=== PATIENT | female | born 1945 | race Caucasian/White ===

== ENCOUNTER → 2017-01-22 | Outpatient (CLI) | payer OTHER | END | disposition home or self-care (01) | LOC: C.CPL 10:10 | PROVIDERS: ATTEND Orthopaedic Surgery Sports Medicine | DX: M75.41 Impingement syndrome of right shoulder (principal) ==

== ENCOUNTER 2017-12-13 07:37 | Inpatient (IN) | payer OTHER ==
[2017-11-09 14:26] VITALS: Ht 176.5 cm; Wt 120.1 kg
--- NOTE | 2017-11-09 15:07 | PAT Medication Instructions ---
Service Date Nov 09, 2017. Current Home Medication List Acetaminophen (Tylenol), 1,000 MG PO PRN Acetaminophen/Diphenhydramine (Tylenol Pm), 2 TAB PO HS PRN for PRN Ascorbic Acid (Vitamin C), 500 MG PO QAM Carvedilol (Coreg), 3.125 MG PO QAM Citalopram Hydrobromide (Celexa), 10 MG PO QAM Fish Oil (Orient-3), 1 CAP PO QAM Multivitamin (Multivitamin), 1 TAB PO QAM Pitavastatin Calcium (Livalo), 4 MG PO HS Medication Instructions For Your Scheduled Surgery - Hold the following medications 2 weeks prior to surgery: Fish Oil (Orient-3), 1 CAP PO QAM - Hold the following medications the morning of surgery: Multivitamin (Multivitamin), 1 TAB PO QAM Ascorbic Acid (Vitamin C), 500 MG PO QAM - Take the following medications the morning of surgery with a sip of water: Carvedilol (Coreg), 3.125 MG PO QAM Citalopram Hydrobromide (Celexa), 10 MG PO QAM Acetaminophen (Tylenol), 1,000 MG PO PRN (if needed, can be taken up to four hours before surgery) - Take the following medications as scheduled the night before surgery: Pitavastatin Calcium (Livalo), 4 MG PO HS Acetaminophen (Tylenol), 1,000 MG PO PRN (if needed) Acetaminophen/Diphenhydramine (Tylenol Pm), 2 TAB PO HS PRN for PRN (if needed) If you have any questions please call us at [phone] or [phone] or [phone]
--- NOTE | 2017-11-09 16:03 | DIAGNOSTIC IMAGING REPORT ---
CHEST 2 VIEWS ROUTINE HISTORY: Preop. COMPARISON: None. FINDINGS: The heart is normal in size. No pleural effusions. No pneumothorax. Small left upper lobe calcified granuloma. The lungs are otherwise clear. Prior cholecystectomy. IMPRESSION: No acute process. Electronically signed by: Hai Bacon M.D. 11/09/2017 4:01 PM Dictated Date/Time: 11/09/2017 4:00 PM
[2017-11-09 16:05] LABS: BASO % 0.1 %; BASO ABS # 0.01 K/uL (0-0.2); EOS % 1.9 %; EOS ABS # 0.14 K/uL (0-0.5); HEMOGLOBIN 13.5 g/dL (12.0-16.0); LYMPH % 32.1 %; LYMPH ABS # 2.33 K/uL (1.2-3.4); MEAN CELL VOLUME 94.1 fL (80-100); MEAN CORPUSCULAR HEMOGLOBIN 31.8 pg (25-34); MEAN CORPUSCULAR HGB CONC 33.8 g/dl (32-36); MEAN PLATELET VOLUME 10.7 fL (7.4-10.4); MONO % 10.2 %; MONO ABS # 0.74 K/uL (0.11-0.59); NEUT % 55.7 %; NEUT ABS # 4.03 K/uL (1.4-6.5); PLATELET COUNT 246 K/uL (130-400); RED CELL DISTRIBUTION WIDTH CV 13.3 % (11.5-14.5); RED CELL DISTRIBUTION WIDTH SD 45.9 fL (36.4-46.3); WHITE BLOOD COUNT 7.25 K/uL (4.8-10.8)
[2017-11-09 16:14] LABS: PTT PATIENT 24.5 SECONDS (21.0-31.0)
[2017-11-09 16:35] LABS: ALBUMIN 3.3 gm/dl (3.4-5.0); CALCIUM 8.9 mg/dl (8.5-10.1); CREATININE 0.67 mg/dl (0.60-1.20); POTASSIUM 3.8 mmol/L (3.5-5.1)
[2017-11-10 07:29] LABS: HEMOGLOBIN A1C 5.2 % (4.5-5.6)
--- NOTE | 2017-12-12 18:12 | HISTORY & PHYSICAL EXAMINATION ---
DATE OF ADMISSION: 12/13/2017 CHIEF COMPLAINT: Chronic right knee pain. HISTORY OF PRESENT ILLNESS: This is a 72-year-old female patient of Dr. Biggs'skyler complaining of chronic right knee pain, longstanding, now progressively getting worse. The patient has been diagnosed with end-stage osteoarthritis per clinical and radiographic exams. The patient has failed conservative treatment including physical therapy, Tylenol, anti-inflammatories and intra-articular injections. She has also tried the use of a brace and a sleeve. She continues to have pain with weightbearing activities and her pain does interfere with her activities of daily living. PAST MEDICAL HISTORY: Hypertension, hypercholesterolemia, osteoarthritis, spine problems, neck problems, sciatica, obesity. SOCIAL HISTORY: Nonsmoker, nondrinker. PAST SURGICAL HISTORY: Right shoulder, hysterectomy, cholecystectomy, tonsillectomy. FAMILY HISTORY: Noncontributory. REVIEW OF SYSTEMS: The patient complains of chronic right knee pain, otherwise denies any shortness of breath, chest pain, nausea, vomiting or visual complaints. MEDICATIONS: Tylenol PM as needed, fish oil daily, vitamin C daily, Coreg 3.125 mg daily, Livalo 4 mg daily, Celexa 10 mg daily. ALLERGIES: INCLUDES PENICILLIN, CELEBREX AND KEFLEX. PHYSICAL EXAMINATION: GENERAL: Well-developed, well-nourished 72-year-old female in no acute distress. She is alert and oriented x3 and pleasant. HEENT: Normocephalic, atraumatic. Extraocular muscles are intact. Pupils are equal, reactive to light. HEART: Regular rate and rhythm, no murmurs appreciated. LUNGS: Clear. ABDOMEN: Soft and nontender. Bowel sounds are present. EXTREMITIES: Right knee limited range of motion of 0-85. She has a valgus deformity. She has lateral joint line tenderness. She has 4/5 strength. NEUROLOGIC: Neurovascularly, she is intact in her right lower extremity. DIAGNOSES: Right knee end-stage osteoarthritis, hypertension, hypercholesterolemia, osteoarthritis, spine problems, neck problems, sciatica, obesity. PLAN: The patient was advised of her diagnosis. Indications, risks, benefits, postop course have all been reviewed. The patient wished to proceed with a right total knee arthroplasty. Necessary consent forms, preoperative testing clearances will be obtained.
[~2017-12-13] VITALS: Ht 176.5 cm; Wt 120.1 kg
[~2017-12-13 07:37] MED LIST: ACET-1256 PO; ACETAMINOPHEN 500 MG TAB PO SCH; ASCO1CAP3 PO; BUPIVACAINE 0.25% 30 ML VIAL ONE; BUPIVACAINE 0.5 % 5 MG/1 ML PF 10ML VIAL ONE; CARV3.122 PO; CITA10TA8 PO; CeleBREX 200 MG CAP PO SCH; DEXAMETHASONE 4 MG TAB PO SCH; DIPH-437 PO; FAMOTIDINE 20 MG TAB PO SCH; GABAPENTIN 300 MG CAP PO SCH; LACTATED RINGER'S 1000ML 1,000 ML IV SCH; LACTATED RINGER'S 1000ML 500 ML IV SCH; METOCLOPRAMIDE HCL 10 MG TAB PO SCH; MULT-506 PO; OMEG10007 PO; PITA1TAB19 PO; ROPIVACAINE 5MG/ML 30 ML 150 MG, BUPIVACAINE 0.5% MPF INJ 30 ML, EpINEphrine HCL INJ 0.... INFIL SCH; VANCOMYCIN INJ 1,750 MG in SODIUM CHLORIDE 0.9% 500ML 500 ML IV SCH
[2017-12-13] MEDS ORDERED: FENTANYL CITRATE INJ 50 MCG/1 ML 2 ML VIAL ONE (08:00)
[2017-12-13] MEDS ORDERED: MIDAZOLAM HCL 1 MG/ML 2ML VIAL ONE ×2 (08:00→10:58)
[2017-12-13 08:38] VITALS: BP 160/73; PULSE 66; TEMP 36.8; O2SAT 95
[2017-12-13] MEDS ORDERED: ATROPINE SULFATE 0.1 MG/ML 5ML SYR IV PRN (08:45)
[2017-12-13] MEDS ORDERED: ONDANSETRON INJ 2 MG/ML 2 ML VIAL IV PRN ×2 (08:45→13:00)
[2017-12-13] MEDS ORDERED: EpHEDrine SULFATE INJ 50 MG/ML AMP IV PRN (08:45)
[2017-12-13] MEDS ORDERED: FENTANYL CITRATE INJ 50 MCG/1 ML 2 ML VIAL IV PRN (08:45)
--- NOTE | 2017-12-13 09:33 | History & Physical Bridge Note ---
H&P Re-Evaluation Bridge Note: I have examined the patient, reviewed the History & Physical and in the interval since the performance of the History & Physical I have noted the following changes of clinical significance: No changes noted
[2017-12-13] MEDS ORDERED: ORTHO JOINT ANESTHETIC ONE (09:59)
[2017-12-13] MEDS ORDERED: POVIDONE-IODINE OP SOLN 30 ML BTL ONE (09:59)
[2017-12-13] MEDS ORDERED: BACITRACIN 50000 UNIT VIAL ONE (09:59)
[2017-12-13] MEDS: TRANEXAMIC ACID INJ 1,000 MG x 2 Bags IV SCH ×4 (10:36→13:55)
[2017-12-13] MEDS ORDERED: PROPOFOL IV EMULSION 10 MG/ML 20 ML VIAL IV ONE ×2 (12:05→12:12)
--- NOTE | 2017-12-13 12:28 | [facility] Post Operative Brief Note ---
Immediate Operative Summary Operative Date Dec 13, 2017. Pre-Operative Diagnosis Right knee end-stage osteoarthritis Post-Operative Diagnosis Same as preop Procedure(s) Performed Right Knee Total Arthroplasty,superficial wound vac Surgeon Dr. Biggs Casting Associate Surgeon(s) Andre ORTIZ Estimated Blood Loss 5ml Findings Consistent with Post-Op Diagnosis Specimens Right knee bone and tissue Drains 2 hemovac Anesthesia Type MAC Spinal Regional Complication(s) none Disposition Disposition: Recovery Room / PACU
[2017-12-13] MEDS ORDERED: MoRPHine SULFATE 2 MG/ML CARP IV PRN (13:00)
[2017-12-13] MEDS ORDERED: MAGNESIUM HYDROXIDE SUSP 30 ML UDC PO PRN (13:00)
[2017-12-13] MEDS ORDERED: METOCLOPRAMIDE HCL INJ 5 MG/ML 2 ML VIAL IV PRN (13:00)
[2017-12-13] MEDS ORDERED: ZOLPIDEM TARTRATE 5 MG TAB PO PRN (13:00)
[2017-12-13] MEDS ORDERED: BISACODYL 10 MG SUPP PR PRN (13:00)
[2017-12-13] MEDS ORDERED: SOD PHOSPHATE/SOD BIPHOSPHATE ENEMA 132 ML BTL PR PRN (13:00)
--- NOTE | 2017-12-13 13:29 | DIAGNOSTIC IMAGING REPORT ---
R KNEE 1 OR 2 VIEWS ROUTINE CLINICAL HISTORY: AP/LATERAL IN PACU RIGHT KNEE pain COMPARISON: None. DISCUSSION: Anatomic alignment posttotal right knee arthroplasty. Expected soft tissue postoperative change. IMPRESSION: Anatomic alignment posttotal right knee arthroplasty. The above report was generated using voice recognition software. It may contain grammatical, syntax or spelling errors. Electronically signed by: Andre Pollack M.D. 12/13/2017 1:27 PM Dictated Date/Time: 12/13/2017 1:26 PM
[2017-12-13 14:05] VITALS: BP 112/63; PULSE 56; TEMP 36.2; O2SAT 99
[2017-12-13 14:35] VITALS: BP 142/70; PULSE 60; O2SAT 97
--- NOTE | 2017-12-13 15:06 | Anesthesiology Progress Note ---
Anesthesia Post Op Note Date & Time Dec 13, 2017 at 15:06 Vital Signs Pain Intensity: 0.0 Vital Signs Past 12 Hours Date Time Temp Pulse Resp B/P (MAP) Pulse Ox O2 Delivery O2 Flow Rate FiO2 12/13/17 14:35 60 16 142/70 (94) 97 2.0 12/13/17 14:05 36.2 56 16 112/63 (79) 99 Nasal Cannula 2.0 12/13/17 14:05 Nasal Cannula 2.0 12/13/17 14:05 Nasal Cannula 2.0 12/13/17 13:40 37.1 53 18 124/57 97 Nasal Cannula 2 12/13/17 13:30 37.1 54 16 122/58 98 Nasal Cannula 2 12/13/17 13:20 53 16 121/55 96 Nasal Cannula 2 12/13/17 13:10 57 16 105/57 96 Nasal Cannula 2 12/13/17 13:00 55 16 106/55 98 Nasal Cannula 2 12/13/17 12:51 36.7 59 16 114/52 95 Nasal Cannula 2 12/13/17 08:38 36.8 66 20 160/73 95 Room Air Notes Mental Status: alert / awake / arousable, participated in evaluation Pt Amnestic to Procedure: Yes Nausea / Vomiting: adequately controlled Pain: adequately controlled Airway Patency, RR, SpO2: stable & adequate BP & HR: stable & adequate Hydration State: stable & adequate Neuraxial Anesthesia: was administered, sensory block is resolving Anesthetic Complications: no major complications apparent
--- NOTE | 2017-12-13 15:10 | [facility] Operative Report ---
Operative Report Operative Date Dec 13, 2017. Pre-Operative Diagnosis Right knee end-stage osteoarthritis Post-Operative Diagnosis Same Procedure(s) Performed Right total knee arthroplasty, superficial wound VAC application Surgeon Dr. Biggs Hazardous Material Specialist Surgeon(s) Andre ORTIZ Estimated Blood Loss 5ml Findings Severe DJD lateral compartment grade 4 [id number] grade 3-4 patellofemoral DJD chronic lateral meniscus tear with subluxation. Specimens Right knee bone and tissue Drains 2 hemovac Anesthesia Spinal sedation regional block and orthomix Complication(s) None Disposition Recovery Room / PACU Indications 72-year-old female with severe bilateral knee DJD valgus knees [id number] lateral compartment bilateral knees. Right knee more painful than left. Obesity BMI 38.6 Description of Procedure The patient was taken to the operating room and anesthetized under spinal anesthetic sedation regional block to right knee. Patient was placed supine on the the operating table. A pneumatic tourniquet was placed about the right upper thigh. The knee exam demonstrated valgus knee slight flexion contracture flexion of 125. Right lower extremity was prepped and draped with ChloraPrep U sterile fashion. An anterior longitudinal incision was made across the knee. Skin flaps were elevated. An incision was made into the medial retinaculum and extended up into the mid third of the quadriceps tendon and extended down to the tibial tubercle. Intra-articular findings demonstrated valgus knee grade 4 lateral compartment osteoarthritis grade 3-4 patellofemoral osteoarthritis chronic lateral meniscus tear with subluxation.. The knee was exposed by excising cruciate ligaments and menisci. The infrapatellar fat pad was resected. The fat pad over the anterior femur at the upper aspect of the articular surface was resected for placement of the component in that area. A subperiosteal peel lateral release was performed around the patella The Stevens [employer] Nephew Xyoney 2.0 total knee arthroplasty system was utilized for the procedure. Visionary MRI templating was used sizing fever for 6 tibia for a 4. The custom femoral cutting guide was pinned in position. The distal femoral cut was made. The size 6, 5 in 1 cutting block was placed. The anterior posterior and chamfer cuts were made. The knee was extended and a free hand cut technique was performed to the patella. The patella with was measured and the width was reproduced using a 35 mm patella component. 3 drill holes are made for the patella component pegs. The tibia was then subluxed. The custom tibial cutting block was pinned in position and the proximal tibial cut was made with the oscillating saw. The size 4 tibial trial was externally rotated in line with the tibial tubercle and pinned in position. The punch for the stem was used and the collet was placed. Tibial trials were used for the insert. The size 12 trial gave balanced ligaments through full range of motion. Lateral capsule and a portion of the IT band of the tibia was released to achieve ligamentous balance. Patella tracking was assessed with range of motion. The patella tracked centrally. The trials were removed. The Orthomix anesthetic cocktail was injected per protocol. The cut bone surfaces and soft tissue were copiously irrigated with antibiotic solution with bacitracin. The final components were cemented with Simplex cement. The final components were Stevens [employer] Nephew journey 2.0 size 6 posterior stabilized Oxinium femoral component for primary tibial baseplate 12 mm high flex posterior stabilized polyethylene insert and a 35 mm dome patella. While the cement cured the Betadine soak was used per protocol. When the cement cured the knee was copiously irrigated with pulsatile lavage antibiotic solution with bacitracin. 2 drains were brought out laterally connected to Hemovac. The quadriceps tendon and medial retinaculum were closed with interrupted [id number] #1 Vicryl sutures. The knee was taken through full range of motion and repair was secure. The subcutaneous tissues were closed with 2-0 Vicryl sutures. The skin was closed with elysia. A superficial wound VAC was applied. The tourniquet was let down and the patient had good capillary refill to the extremity. The patient tolerated the procedure well. My physician railways assistant Andre ORTIZ assisted in the procedure including leg positioning soft tissue retraction instrument management and assisted in the closure ,dressings application and will participate in postoperative care the patient. I attest to the content of the Intraoperative Record and any orders documented therein. Any exceptions are noted below.
[2017-12-13 15:27] VITALS: BP 135/83; PULSE 57; TEMP 36.3; O2SAT 96
[2017-12-13 16:15] VITALS: BP 139/81; TEMP 36.6; O2SAT 96
[2017-12-13] MEDS: CLINDAMYCIN IV 600 MG in DEXTROSE 5% 50ML 50 ML IV SCH (17:59)
[2017-12-13] MEDS: OXYCODONE HCL IR 5 MG TAB (IMMEDIATE RELEASE) PO PRN (20:23)
[2017-12-13] MEDS: DOCUSATE SODIUM 100 MG CAP PO SCH (20:39)
[2017-12-13] MEDS: ASPIRIN 81 MG ECTAB PO SCH (20:39)
[2017-12-13] MEDS ORDERED: ASPEC81 PO (20:42)
--- NOTE | 2017-12-13 21:04 | Medical Consult ---
Consultation Date of Consultation: Dec 13, 2017. Attending Physician: Darrick Biggs M.D. Reason for Consultation: perioperative medication management History of Present Illness This is a 72-year-old female patient of Dr. Biggs'skyler who underwent a right total knee replacement today for long-standing progressively worse osteoarthritis. She is doing well postoperatively denying pain, tolerating p.o. and plans to go home tomorrow. Full history and physical performed and medications were reviewed with patient. Review of systems is negative at this time. The patient is tolerating p.o. and reports that she is passing gas. Past Medical/Surgical History Medical Problems: (1) HTN (hypertension) Status: Chronic (2) Hyperlipidemia Status: Chronic (3) Obesity (BMI 30-39.9) Status: Chronic (4) Osteoarthritis Status: Chronic (5) Sciatica Status: Chronic Surgical Problems: (1) S/P rhonda Status: Chronic (2) S/P T&A (status post tonsillectomy and adenoidectomy) Status: Chronic (3) S/P TIP (total abdominal hysterectomy) Status: Chronic Family History Patient reports no known family medical history. Social History Smoking Status: Never Smoker Smokeless Tobacco Use: No Alcohol Use: none Drug Use: none Marital Status: Housing Status: lives with significant other Occupation Status: retired Allergies Coded Allergies: Penicillins (Verified Allergy, Unknown, HIVES, 12/13/17) Celecoxib (Verified Adverse Reaction, Unknown, ELEVATED BP, 12/13/17) Cephalexin (Verified Adverse Reaction, Unknown, GETS YEAST INFECTION, ) Home Medications Reported Home Medications Medications Dose Route/Sig Max Daily Dose Days Date Category Aspirin EC Low Dose (Aspirin) 81 Mg Ectab 81 Mg PO DAILY 12/13/17 Reported Tylenol (Acetaminophen) 500 Mg Tab 1,000 Mg PO PRN 11/09/17 Reported Multivitamin (Multivitamins) Tab 1 Tab PO QAM 11/09/17 Reported Livalo (Pitavastatin) 4 Mg Tab 4 Mg PO HS 11/09/17 Reported Celexa (Citalopram Hydrobromide) 10 Mg Tab 10 Mg PO QAM 11/09/17 Reported Vitamin C (Ascorbic Acid) 500 Mg Cap 500 Mg PO QAM 11/09/17 Reported Sobieski-3 (Fish Oil) 1 Ea Cap 1 Cap PO QAM 11/09/17 Reported Coreg (Carvedilol) 3.125 Mg Tab 3.125 Mg PO QAM 11/09/17 Reported Current Inpatient Medications Current Inpatient Medications Medications (Trade) Dose Ordered Sig/Kiki Route Start Time Stop Time Status Last Admin Dose Admin Vancomycin HCl 1750 mg/Sodium Chloride 535 ml @ 200 mls/hr PREOP IV 12/13/17 06:00 12/14/17 05:59 12/13/17 08:28 200 MLS/HR Carvedilol (Coreg Tab) 3.125 mg QAM PO 12/14/17 09:00 01/13/18 08:59 Citalopram Hydrobromide (celeXA TAB) 10 mg QAM PO 12/14/17 09:00 01/13/18 08:59 Ascorbic Acid (Vitamin C Tab) 500 mg QAM PO 12/14/17 09:00 01/13/18 08:59 Miscellaneous Information (Order Awaiting Action) 1 ea QS N/A 12/13/17 16:00 01/12/18 15:59 Potassium Chloride/Dextrose/ Sod Cl 1,000 ml @ 100 mls/hr Q10H IV 12/13/17 15:00 12/14/17 14:59 Clindamycin Phosphate 600 mg/ Dextrose 54 ml @ 100 mls/hr Q8H IV 12/13/17 16:00 12/14/17 00:33 12/13/17 17:59 100 MLS/HR Oxycodone HCl (Roxicodone Immediate Rel Tab) 1 TABLET FOR PAIN RATING... Q4H PRN PO 12/13/17 13:00 12/27/17 12:59 12/13/17 20:23 5 MG Morphine Sulfate (MoRPHine SULFATE INJ) FOR PAIN, 2-4MG 2MG FOR P... Q2H PRN IV 12/13/17 13:00 12/27/17 12:59 Acetaminophen (Tylenol Tab) 1,000 mg Q8H PO 12/13/17 22:00 01/12/18 21:59 Magnesium Hydroxide (Milk Of Magnesia Susp) 30 ml Q6H PRN PO 12/13/17 13:00 01/12/18 12:59 Bisacodyl (Dulcolax Supp) 10 mg DAILY PRN NE 12/13/17 13:00 01/12/18 12:59 Sodium Biphosphate/ Sodium Phosphate (Fleet Enema) 132 ml DAILY PRN NE 12/13/17 13:00 01/12/18 12:59 Docusate Sodium (coLACE CAP) 100 mg BID PO 12/13/17 21:00 01/12/18 20:59 12/13/17 20:39 100 MG Diphenhydramine HCl (Benadryl Cap) 25 mg Q8H PRN PO 12/13/17 13:00 01/12/18 12:59 Zolpidem Tartrate (Ambien Tab) 5 mg HSZ PRN PO 12/13/17 13:00 01/12/18 12:59 Multivitamins (Multivitamin Tab) 1 tab QAM PO 12/14/17 09:00 01/13/18 08:59 Ondansetron HCl (Zofran Inj) 4 mg Q6H PRN IV 12/13/17 13:00 01/12/18 12:59 Metoclopramide HCl (Reglan Inj) 10 mg Q6H PRN IV 12/13/17 13:00 01/12/18 12:59 Pantoprazole Sodium (Protonix Tab) 40 mg QAM PO 12/14/17 09:00 12/18/17 08:59 Tramadol HCl (Ultram Tab) 1 tablet for pain rating... Q4H PRN PO 12/13/17 13:00 01/12/18 12:59 Aspirin (Ecotrin Tab) 81 mg BID PO 12/13/17 21:00 01/12/18 20:59 12/13/17 20:39 81 MG Review of Systems At least 10 systems were reviewed and negative except as indicated in H PI. Physical Exam Date Time Temp Pulse Resp B/P (MAP) Pulse Ox O2 Delivery O2 Flow Rate FiO2 12/13/17 16:20 Nasal Cannula 2.0 12/13/17 16:15 36.6 15 139/81 (100) 96 Nasal Cannula 2.0 12/13/17 15:27 36.3 57 18 135/83 (100) 96 Nasal Cannula 2.0 12/13/17 14:35 60 16 142/70 (94) 97 2.0 12/13/17 14:05 36.2 56 16 112/63 (79) 99 Nasal Cannula 2.0 12/13/17 14:05 Nasal Cannula 2.0 12/13/17 14:05 Nasal Cannula 2.0 12/13/17 13:40 37.1 53 18 124/57 97 Nasal Cannula 2 12/13/17 13:30 37.1 54 16 122/58 98 Nasal Cannula 2 12/13/17 13:20 53 16 121/55 96 Nasal Cannula 2 12/13/17 13:10 57 16 105/57 96 Nasal Cannula 2 12/13/17 13:00 55 16 106/55 98 Nasal Cannula 2 12/13/17 12:51 36.7 59 16 114/52 95 Nasal Cannula 2 12/13/17 08:38 36.8 66 20 160/73 95 Room Air General Appearance: no apparent distress, + obese Head: normocephalic, atraumatic Eyes: normal inspection, sclerae normal ENT: pharynx normal Neck: trachea midline Respiratory/Chest: lungs clear, normal breath sounds, no respiratory distress, no accessory muscle use Cardiovascular: regular rate, rhythm, no edema, no gallop, no JVD, no murmur, normal peripheral pulses Abdomen/GI: non tender, soft Extremities/Musculoskelatal: + pertinent finding (NVI, right leg in the large postsurgical dressing clean dry and intact) Neurologic/Psych: lace roller operator II-XII nml as tested, alert, normal mood/affect, oriented x 3 Skin: normal color, warm/dry Laboratory Results 11/09/17 15:18 Red Blood Count 4.25, Mean Corpuscular Volume 94.1, Mean Corpuscular Hemoglobin 31.8, Mean Corpuscular Hemoglobin Concent 33.8, Mean Platelet Volume 10.7, Neutrophils (%) (Auto) 55.7, Lymphocytes (%) (Auto) 32.1, Monocytes (%) (Auto) 10.2, Eosinophils (%) (Auto) 1.9, Basophils (%) (Auto) 0.1, Neutrophils # (Auto ) 4.03, Lymphocytes # (Auto) 2.33, Monocytes # (Auto) 0.74, Eosinophils # (Auto ) 0.14, Basophils # (Auto) 0.01 11/09/17 15:18 Test 11/09/17 00:00 11/09/17 15:18 Urine Color YELLOW Urine Appearance CLEAR (CLEAR) Urine pH 5.0 (4.5-7.5) Urine Specific [employer] 1.019 (1.000-1.030) Urine Protein NEG (NEG) Urine Glucose (UA) NEG (NEG) Urine Ketones NEG (NEG) Urine Occult Blood NEG (NEG) Urine Nitrite NEG (NEG) Urine Bilirubin NEG (NEG) Urine Urobilinogen NEG (NEG) Urine Leukocyte Esterase NEG (NEG) White Blood Count 7.25 K/uL (4.8-10.8) Red Blood Count 4.25 M/uL (4.2-5.4) Hemoglobin 13.5 g/dL (12.0-16.0) Hematocrit 40.0 % (37-47) Mean Corpuscular Volume 94.1 fL (80-100) Mean Corpuscular Hemoglobin 31.8 pg (25-34) Mean Corpuscular Hemoglobin Concent 33.8 g/dl (32-36) Platelet Count 246 K/uL (130-400) Mean Platelet Volume 10.7 fL (7.4-10.4) Neutrophils (%) (Auto) 55.7 % Lymphocytes (%) (Auto) 32.1 % Monocytes (%) (Auto) 10.2 % Eosinophils (%) (Auto) 1.9 % Basophils (%) (Auto) 0.1 % Neutrophils # (Auto) 4.03 K/uL (1.4-6.5) Lymphocytes # (Auto) 2.33 K/uL (1.2-3.4) Monocytes # (Auto) 0.74 K/uL (0.11-0.59) Eosinophils # (Auto) 0.14 K/uL (0-0.5) Basophils # (Auto) 0.01 K/uL (0-0.2) RDW Standard Deviation 45.9 fL (36.4-46.3) RDW Coefficient of Variation 13.3 % (11.5-14.5) Immature Granulocyte % (Auto) 0.0 % Immature Granulocyte # (Auto) 0.00 K/uL (0.00-0.02) Prothrombin Time 10.2 SECONDS (9.0-12.0) Prothromb Time International Ratio 1.0 (0.9-1.1) Activated Partial Thromboplast Time 24.5 SECONDS (21.0-31.0) Partial Thromboplastin Ratio 0.9 Anion Gap 6.0 mmol/L (3-11) Est Creatinine Clear Calc Drug Dose 109.1 ml/min Estimated GFR () 103.2 Estimated GFR (Non- 89.1 BUN/Creatinine Ratio 19.1 (10-20) Estimated Average Glucose 103 mg/dl Hemoglobin A1c 5.2 % (4.5-5.6) Calcium Level 8.9 mg/dl (8.5-10.1) Albumin 3.3 gm/dl (3.4-5.0) Assessment & Plan 1. s/p right total knee replacement -POD 0; surgery performed by Dr.Edwin Biggs -post-operative pain well managed -monitor for acute blood loss with daily H&H -pt encouraged to utilize spirometry to prevent post-op infection -PT/OT -activity and wound care orders per ortho protocol -will continue to follow -Aspirin and fish oil on hold until okay with surgery 2. Hypertension-controlled continue Coreg per home regimen 3. Depression stable-continue Celexa per home regimen DVT Prophylaxis -per ortho protocol Code Status -full code Dispo -per ortho. Thank you for this consultation. We will follow the patient with you during their hospital stay. You can reach a member of the [facility] Hospitalist Team 30/04 via pager @ . Joanna Muñoz DO [facility] Hospitalist
[2017-12-13] MEDS: ACETAMINOPHEN 500 MG TAB PO SCH (21:56)
[2017-12-13] MEDS: D5W AND 1/2NSS + 20MEQ KCL 1,000 ML IV SCH (21:56)
[2017-12-13 22:53] VITALS: BP 104/63; PULSE 65; TEMP 37; O2SAT 91
[2017-12-14] VITALS (8 sets, daily range): BP systolic 112–146; BP diastolic 62–81; PULSE 60–66; TEMP 36.6–36.9; O2SAT 93–96
[2017-12-14] MEDS: CLINDAMYCIN IV 600 MG in DEXTROSE 5% 50ML 50 ML IV SCH (00:05)
[2017-12-14] MEDS: D5W AND 1/2NSS + 20MEQ KCL 1,000 ML IV SCH ×2 (00:07→08:21)
[2017-12-14] MEDS ORDERED: CHOL100041 PO (02:14)
[2017-12-14] MEDS: ACETAMINOPHEN 500 MG TAB PO SCH ×3 (05:31→22:36)
[2017-12-14] MEDS: OXYCODONE HCL IR 5 MG TAB (IMMEDIATE RELEASE) PO PRN ×4 (05:31→20:35)
[2017-12-14 07:08] LABS: HEMATOCRIT 34.5 % (37-47); HEMOGLOBIN 11.9 g/dL (12.0-16.0); MEAN CORPUSCULAR HEMOGLOBIN 31.7 pg (25-34); MEAN CORPUSCULAR HGB CONC 34.5 g/dl (32-36); MEAN PLATELET VOLUME 10.3 fL (7.4-10.4); PLATELET COUNT 219 K/uL (130-400); RED CELL DISTRIBUTION WIDTH CV 13.1 % (11.5-14.5); RED CELL DISTRIBUTION WIDTH SD 44.1 fL (36.4-46.3); WHITE BLOOD COUNT 12.15 K/uL (4.8-10.8)
[2017-12-14 07:33] LABS: CREATININE 0.7 mg/dl (0.60-1.20); POTASSIUM 4.4 mmol/L (3.5-5.1)
[2017-12-14 07:34] LABS: CALCIUM 8.4 mg/dl (8.5-10.1)
--- NOTE | 2017-12-14 08:15 | Orthopedic Progress Note ---
Orthopedic Progress Note Date of Service Dec 14, 2017. Subjective Post OP Day: 1 Reports: feeling well, pain controlled w PO medications, Denies: complaints, chest pain, SOB, nausea / vomiting, light headedness, calf pain Objective calves soft nontender, N/V intact, capillary refill less than 2 sec., dressing C /D/I, A&O x3, toes mobile Date Time Temp Pulse Resp B/P (MAP) Pulse Ox O2 Delivery O2 Flow Rate FiO2 12/14/17 07:58 36.8 64 14 130/78 (95) 94 Room Air 12/14/17 07:15 Room Air 12/14/17 07:14 36.7 63 18 132/81 (98) 95 Room Air 12/14/17 02:54 36.6 65 16 112/62 (79) 93 Room Air 12/14/17 00:00 Room Air 12/13/17 22:53 37.0 65 16 104/63 (77) 91 Room Air 12/13/17 16:20 Nasal Cannula 2.0 12/13/17 16:15 36.6 15 139/81 (100) 96 Nasal Cannula 2.0 12/13/17 15:27 36.3 57 18 135/83 (100) 96 Nasal Cannula 2.0 12/13/17 14:35 60 16 142/70 (94) 97 2.0 12/13/17 14:05 36.2 56 16 112/63 (79) 99 Nasal Cannula 2.0 12/13/17 14:05 Nasal Cannula 2.0 12/13/17 14:05 Nasal Cannula 2.0 12/13/17 13:40 37.1 53 18 124/57 97 Nasal Cannula 2 12/13/17 13:30 37.1 54 16 122/58 98 Nasal Cannula 2 12/13/17 13:20 53 16 121/55 96 Nasal Cannula 2 12/13/17 13:10 57 16 105/57 96 Nasal Cannula 2 12/13/17 13:00 55 16 106/55 98 Nasal Cannula 2 12/13/17 12:51 36.7 59 16 114/52 95 Nasal Cannula 2 12/13/17 08:38 36.8 66 20 160/73 95 Room Air Laboratory Results 24 Hours: Test 12/14/17 06:46 Hematocrit 34.5 % Hemoglobin 11.9 g/dL Assessment & Plan Assessment: POD #1, Right TKA Plan: PT/ OT DVT proph- ASA D/C planning home w OPPT As per medicine. Inhouse Planning Pain Management: Ultram, Morphine, PO Tylenol, Oxy IR DVT Prophylaxis: TEDs, SCDs, ASA Discharge Planning Discharge Planning: home with oppt Pain Management: Ultram, PO Tylenol, Oxy IR DVT Prophylaxis: TEDs, ASA Therapy: Physical Therapy, Occupational Therapy
[2017-12-14] MEDS: DOCUSATE SODIUM 100 MG CAP PO SCH ×2 (08:21→20:31)
[2017-12-14] MEDS: PANTOprazole SOD 40 MG TAB PO SCH (08:21)
[2017-12-14] MEDS: ASPIRIN 81 MG ECTAB PO SCH ×2 (08:21→20:31)
[2017-12-14] MEDS: MULTIVITAMIN TAB PO SCH (08:21)
[2017-12-14] MEDS: ASCORBIC ACID 500 MG TAB PO SCH (08:21)
[2017-12-14] MEDS: CARVEDILOL 3.125 MG TAB PO SCH (08:22)
[2017-12-14] MEDS: CITALOPRAM 20 MG TAB PO SCH (08:22)
--- NOTE | 2017-12-14 10:09 | Anesthesiology Progress Note ---
Anesthesia Post Op Note Date & Time Dec 14, 2017 at 10:09 Vital Signs Pain Intensity: 3.0 Vital Signs Past 12 Hours Date Time Temp Pulse Resp B/P (MAP) Pulse Ox O2 Delivery O2 Flow Rate FiO2 12/14/17 08:52 94 Room Air 12/14/17 07:58 36.8 64 14 130/78 (95) 94 Room Air 12/14/17 07:15 Room Air 12/14/17 07:14 36.7 63 18 132/81 (98) 95 Room Air 12/14/17 02:54 36.6 65 16 112/62 (79) 93 Room Air 12/14/17 00:00 Room Air 12/13/17 22:53 37.0 65 16 104/63 (77) 91 Room Air Notes Mental Status: alert / awake / arousable, participated in evaluation Pt Amnestic to Procedure: Yes Nausea / Vomiting: adequately controlled Pain: adequately controlled Airway Patency, RR, SpO2: stable & adequate BP & HR: stable & adequate Hydration State: stable & adequate Neuraxial Anesthesia: was administered, sensory block resolved Anesthetic Complications: no major complications apparent
[2017-12-14] MEDS: TRAMADOL HCL 50 MG TAB PO PRN (12:30)
--- NOTE | 2017-12-14 20:41 | Progress Note ---
Medicine Progress Note Date & Time of Visit: Dec 14, 2017 at 20:41. Subjective patient seen resting in bed, comfortable states she feels fine overall denies chest pain, dyspnea, dizziness no other symptoms Objective Last 8 Hrs Date Time Temp Pulse Resp B/P (MAP) Pulse Ox O2 Delivery O2 Flow Rate FiO2 12/14/17 16:15 96 Room Air 12/14/17 15:05 36.7 60 16 144/73 (96) 96 Room Air Physical Exam: General- oriented x 3, not in distress, speaks in sentences with no effort Head- atraumatic Eyes- anicteric ENT- oropharynx clear Neck- supple, no JVD Lungs- clear to auscultation bilaterally Heart- regular rhythm; no murmur, normal rate Abdomen- normal bowel sounds, soft, nontender Extremities- no pretibial edema, no calf tenderness Neuro- alert, oriented x 3; no gross deficits Skin- warm & dry Laboratory Results: Last 24 Hours Test 12/14/17 06:46 White Blood Count 12.15 K/uL Red Blood Count 3.75 M/uL Hemoglobin 11.9 g/dL Hematocrit 34.5 % Mean Corpuscular Volume 92.0 fL Mean Corpuscular Hemoglobin 31.7 pg Mean Corpuscular Hemoglobin Concent 34.5 g/dl RDW Standard Deviation 44.1 fL RDW Coefficient of Variation 13.1 % Platelet Count 219 K/uL Mean Platelet Volume 10.3 fL Sodium Level 136 mmol/L Potassium Level 4.4 mmol/L Chloride Level 105 mmol/L Carbon Dioxide Level 24 mmol/L Anion Gap 7.0 mmol/L Blood Urea Nitrogen 17 mg/dl Creatinine 0.70 mg/dl Est Creatinine Clear Calc Drug Dose 104.4 ml/min Estimated GFR () 101.7 Estimated GFR (Non- 87.8 BUN/Creatinine Ratio 24.2 Random Glucose 147 mg/dl Calcium Level 8.4 mg/dl Assessment & Plan 1. s/p Right total knee replacement -POD 1; surgery performed by Dr.Edwin Biggs - stable overall monitor Hg 2. Hypertension - stable continue Coreg 3. Depression stable -continue Celexa per home regimen DVT Prophylaxis -per ortho protocol Thank you for this consultation. We will follow the patient with you during their hospital stay. You can reach a member of the [facility] Hospitalist Team 30/04 via pager @ [phone]. Current Inpatient Medications: Current Inpatient Medications Medications (Trade) Dose Ordered Sig/Kiki Route Start Time Stop Time Status Last Admin Dose Admin Carvedilol (Coreg Tab) 3.125 mg QAM PO 12/14/17 09:00 01/13/18 08:59 12/14/17 08:22 3.125 MG Citalopram Hydrobromide (celeXA TAB) 10 mg QAM PO 12/14/17 09:00 01/13/18 08:59 12/14/17 08:22 10 MG Ascorbic Acid (Vitamin C Tab) 500 mg QAM PO 12/14/17 09:00 01/13/18 08:59 12/14/17 08:21 500 MG Miscellaneous Information (Order Awaiting Action) 1 ea QS N/A 12/13/17 16:00 01/12/18 15:59 Oxycodone HCl (Roxicodone Immediate Rel Tab) 1 TABLET FOR PAIN RATING... Q4H PRN PO 12/13/17 13:00 12/27/17 12:59 12/14/17 20:35 10 MG Morphine Sulfate (MoRPHine SULFATE INJ) FOR PAIN, 2-4MG 2MG FOR P... Q2H PRN IV 12/13/17 13:00 12/27/17 12:59 Acetaminophen (Tylenol Tab) 1,000 mg Q8H PO 12/13/17 22:00 01/12/18 21:59 12/14/17 13:39 1,000 MG Magnesium Hydroxide (Milk Of Magnesia Susp) 30 ml Q6H PRN PO 12/13/17 13:00 01/12/18 12:59 Bisacodyl (Dulcolax Supp) 10 mg DAILY PRN [place] 12/13/17 13:00 01/12/18 12:59 Sodium Biphosphate/ Sodium Phosphate (Fleet Enema) 132 ml DAILY PRN [place] 12/13/17 13:00 01/12/18 12:59 Docusate Sodium (coLACE CAP) 100 mg BID PO 12/13/17 21:00 01/12/18 20:59 12/14/17 20:31 100 MG Diphenhydramine HCl (Benadryl Cap) 25 mg Q8H PRN PO 12/13/17 13:00 01/12/18 12:59 Zolpidem Tartrate (Ambien Tab) 5 mg HSZ PRN PO 12/13/17 13:00 01/12/18 12:59 Multivitamins (Multivitamin Tab) 1 tab QAM PO 12/14/17 09:00 01/13/18 08:59 12/14/17 08:21 1 TAB Ondansetron HCl (Zofran Inj) 4 mg Q6H PRN IV 12/13/17 13:00 01/12/18 12:59 Metoclopramide HCl (Reglan Inj) 10 mg Q6H PRN IV 12/13/17 13:00 01/12/18 12:59 Pantoprazole Sodium (Protonix Tab) 40 mg QAM PO 12/14/17 09:00 12/18/17 08:59 12/14/17 08:21 40 MG Tramadol HCl (Ultram Tab) 1 tablet for pain rating... Q4H PRN PO 12/13/17 13:00 01/12/18 12:59 12/14/17 12:30 100 MG Aspirin (Ecotrin Tab) 81 mg BID PO 12/13/17 21:00 01/12/18 20:59 12/14/17 20:31 81 MG
[2017-12-15] MEDS: OXYCODONE HCL IR 5 MG TAB (IMMEDIATE RELEASE) PO PRN ×3 (00:20→10:52)
[2017-12-15 05:59] VITALS: BP 133/65; PULSE 61; TEMP 36.8; O2SAT 95
[2017-12-15] MEDS: ACETAMINOPHEN 500 MG TAB PO SCH (06:01)
[2017-12-15] MEDS: TRAMADOL HCL 50 MG TAB PO PRN (07:16)
[2017-12-15 07:18] LABS: HEMATOCRIT 37.2 % (37-47); HEMOGLOBIN 11.9 g/dL (12.0-16.0); MEAN CELL VOLUME 93.7 fL (80-100); PLATELET COUNT 231 K/uL (130-400); RED CELL DISTRIBUTION WIDTH CV 13.4 % (11.5-14.5); RED CELL DISTRIBUTION WIDTH SD 46.1 fL (36.4-46.3); WHITE BLOOD COUNT 7.24 K/uL (4.8-10.8)
[2017-12-15 07:47] LABS: CALCIUM 8.7 mg/dl (8.5-10.1); CREATININE 0.76 mg/dl (0.60-1.20)
[2017-12-15] MEDS: DOCUSATE SODIUM 100 MG CAP PO SCH (09:08)
[2017-12-15] MEDS: ASPIRIN 81 MG ECTAB PO SCH (09:08)
[2017-12-15] MEDS: ASCORBIC ACID 500 MG TAB PO SCH (09:08)
[2017-12-15] MEDS: PANTOprazole SOD 40 MG TAB PO SCH (09:08)
[2017-12-15] MEDS: MULTIVITAMIN TAB PO SCH (09:08)
[2017-12-15] MEDS: CARVEDILOL 3.125 MG TAB PO SCH (09:08)
[2017-12-15] MEDS: CITALOPRAM 20 MG TAB PO SCH (09:09)
--- NOTE | 2017-12-15 11:45 | Orthopedic Progress Note ---
Orthopedic Progress Note Date of Service Dec 15, 2017. Subjective Post OP Day: 2 Reports: feeling well, pain controlled w PO medications, Denies: chest pain, SOB , nausea / vomiting, light headedness, calf pain Objective calves soft nontender, N/V intact, capillary refill less than 2 sec., dressing C /D/I, A&O x3, toes mobile Date Time Temp Pulse Resp B/P (MAP) Pulse Ox O2 Delivery O2 Flow Rate FiO2 12/15/17 08:15 Room Air 12/15/17 05:59 36.8 61 20 133/65 (87) 95 Room Air 12/15/17 00:20 Room Air 12/14/17 23:35 36.6 66 16 128/76 (93) 94 Room Air 12/14/17 16:15 96 Room Air 12/14/17 15:05 36.7 60 16 144/73 (96) 96 Room Air 12/14/17 11:58 36.9 65 15 146/72 (96) 95 Room Air Laboratory Results 24 Hours: Test 12/15/17 06:17 Hematocrit 37.2 % Hemoglobin 11.9 g/dL Assessment & Plan Assessment: POD #2, Right TKA Plan: PT/ OT DVT proph- ASA D/C planning home w OPPT As per medicine. Inhouse Planning Pain Management: PO Tylenol, Oxy IR DVT Prophylaxis: TEDs, SCDs, ASA Discharge Planning Discharge Planning: home with oppt Pain Management: PO Tylenol, Oxy IR DVT Prophylaxis: TEDs, ASA Therapy: Physical Therapy, Occupational Therapy
--- NOTE | 2017-12-15 11:47 | Discharge Instructions ---
Discharge Instructions Date of Service Dec 15, 2017. Admission Reason for Admission: Right Knee Degenerative Joint Disease Discharge Discharge Diagnosis / Problem: right tka Discharge Goals Goal(s): Decrease discomfort, Improve function, Increase independence, Therapeutic intervention Activity Recommendations Activity Limitations: per Instructions/Follow-up section . Instructions / Follow-Up Instructions / Follow-Up ACTIVITY RECOMMENDATIONS: SELF CARE INSTRUCTIONS AFTER TOTAL KNEE REPLACEMENT A. You may need to continue a physical therapy program after discharge from the hospital. There are several options available to you. Your doctor will assist you in selecting the best one for you. 1. An out-patient facility 2 to 3 times a week for therapy or home therapy. 2. Continue working on all exercises taught to you in the hospital. Your goals should be to increase bending of your knee to 90 degrees and beyond and to fully straighten your knee. B. You may progress at your own pace from walking with a walker or crutches to a cane; then to no assistive devices. C. Make walking a part of your daily routine. Be up as much as comfortable with rest periods throughout the day. Rest with leg elevation is very important. Use the ice wrap frequently for the first 3-4 weeks. D. There are no restrictions on activities. You may ride in a car, shop, participate in straightener gun parts and all social activities. E. Wear the long elastic stockings (FLOWER hose) 20 hours a day for 2 weeks after surgery. They can be removed several times a day for laundering and for a bath. F. You may shower, no tub baths until cleared by your doctor. SPECIAL CARE INSTRUCTIONS: VERY IMPORTANT TO READ AND REVIEW A. There are a few signs you need to watch for after you are home. Call [facility] if you notice any of the followin. Increased severe knee pain. Some pain is expected especially when you exercise. 2. Increased swelling in your leg or knee; pain or swelling of the calf muscle in either lower leg. 3. Any fluid drainage from the incision. 4. Shortness of breath or chest pain. B. Please call [facility] [place] [facility] at if you have any concerns or questions about your operation or recovery. The doctor or his nurse will return your call promptly. C. You must take antibiotics before dental work, bladder, bowel or other surgery. Your doctor will provide you with a permanent care to carry describing this precaution. IMPORTANT: * REMEMBER TO TAKE ASPIRIN, 81 MG, TWICE DAILY FOR 4 WEEKS UNLESS OTHERWISE DIRECTED. THIS IS YOUR BLOOD THINNER. * HIGH RISK PATIENTS MAY BE PRESCRIBED A STRONGER BLOOD THINNER. THIS WILL BE PROVIDED AT DISCHARGE. * CALL IF INCREASED PAIN, REDNESS, DRAINAGE OR FEVER GREATER THAT 101. * WEAR FLOWER HOSE 20 HOURS PER DAY FOR 2 WEEKS. * YOU MAY HAVE A LARGE BAND-AID LIKE DRESSING (SILVERON). THIS WILL REMAIN ON YOUR INCISION FOR 7 DAYS, THEN CAN BE REMOVED. IF INCISION IS LEAKING THROUGH DRESSING, CALL THE OFFICE . FOLLOW UP VISIT: If appointment is not already scheduled: Please call [facility] [place] to make a follow-up appointment for 2 weeks after your surgery at . Current Hospital Diet Patient's current hospital diet: Low Sodium Diet (2gm Na) Discharge Diet Recommended Diet: Low Sodium Diet (2gm Na) Procedures Procedures Performed: Right Knee Total Arthroplasty,superficial wound vac Pending Studies Studies pending at discharge: no Laboratory Results Hemoglobin A1c Test 11/09/17 15:18 Range/Units Estimated Average Glucose 103 mg/dl Hemoglobin A1c 5.2 4.5-5.6 % Medical Emergencies . Who to Call and When: Medical Emergencies: If at any time you feel your situation is an emergency, please call 911 immediately. . Non-Emergent Contact Non-Emergency issues call your: Primary Care Provider . "Provider Documentation" section prepared by Nancy Chávez. . [place] Drug Monitoring Program Search Results: patient reviewed within database, no issues identified
[2017-12-15] MEDS ORDERED: ACET-1256 PO (11:50)
[2017-12-15] MEDS ORDERED: ASPEC81 PO (11:50)
[2017-12-15] MEDS ORDERED: RXC5 PO (11:50)
[2017-12-15] MEDS ORDERED: ONDA8TAB6 PO (11:50)
[2017-12-15 12:36] VITALS: BP 133/65; PULSE 61; TEMP 36.8; O2SAT 95
== END 2017-12-15 13:16 | disposition home or self-care (01) | DRG 470 ==
LOC: C.ACU 07:37 → C.3E 09:23 → ENRESERV 13:15
PROVIDERS: ADMIT Orthopaedic Surgery Sports Medicine; ATTEND Orthopaedic Surgery Sports Medicine
PROC: 0SRC0J9 Replacement of Right Knee Joint with Synthetic Substitute, Cemented, Open Approach (ICD-10-PCS; principal; 2017-12-13 10:45)
DX: M17.11 Unilateral primary osteoarthritis, right knee (principal); I10 Essential (primary) hypertension; E78.5 Hyperlipidemia, unspecified; E66.9 Obesity, unspecified; Z79.899 Other long term (current) drug therapy; Z68.38 Body mass index [BMI] 38.0-38.9, adult; Z88.0 Allergy status to penicillin; Z88.1 Allergy status to other antibiotic agents; F32.9 Major depressive disorder, single episode, unspecified

== ENCOUNTER 2019-02-12 04:48 | Inpatient (IN) ==
--- NOTE | 2019-01-10 10:23 | PAT Medication Instructions ---
Medication Instructions Date of Service January 10, 2019 Home Medications aspirin 81 mg PO QAM carvedilol [Coreg] 6.25 mg PO BID cholecalciferol (vitamin D3) 3 tab PO QAM citalopram [Celexa] 20 mg PO QAM flaxseed oil 1,000 mg PO HS ibuprofen 1 - 2 tab PO UD PRN Continue as directed aspirin 81 mg PO QAM ASK your surgeon for instructions ibuprofen 1 - 2 tab PO UD PRN STOP taking 2 weeks before surgery (or as soon as possible if surgery is within 2 weeks) flaxseed oil 1,000 mg PO HS DO NOT take the morning of surgery cholecalciferol (vitamin D3) 3 tab PO QAM Take morning of surgery With a small sip of water, OTHERWISE NOTHING TO EAT OR DRINK AFTER MIDNIGHT: carvedilol [Coreg] 6.25 mg PO BID citalopram [Celexa] 20 mg PO QAM Take evening before surgery carvedilol [Coreg] 6.25 mg PO BID Other Notes If you have any questions please call us at [phone] or [phone] or [phone] or [phone]
--- NOTE | 2019-01-10 11:44 | Anesthesiology Consultation ---
Date of Service January 10, 2019 Assessment & Plan (1) Encounter for pre-operative examination: Chart Review Chart Review: Acceptable Risk for Surgery and Patient seen in Pre Admission Testing Consults Requested none Teaching & Discussion Pre-Anesthesia Teaching/Discussion Notes: Instructed NPO after midnight before surgery, except medications with 15 cc of water. Medication instructions provided according to the PAT guidelines. History Surgery Operation Date: 02/12/19 07:00 Proposed Procedures p Left Total Knee Arthroplasty - Darrick Biggs MD Height/Weight Height: 5 ft 10 in Weight: 114.1 kg Allergies Allergy/AdvReac Type Severity Reaction Status Date / Time Penicillins Allergy Intermediate HIVES Verified 01/06/19 09:10 Medications Home Medications Medication Instructions Recorded Confirmed Last Taken aspirin 81 mg PO QAM 01/06/19 01/06/19 Unknown carvedilol [Coreg] 6.25 mg PO BID 01/06/19 01/06/19 Unknown cholecalciferol (vitamin D3) 3 tab PO QAM 01/06/19 01/06/19 Unknown [Vitamin D3] citalopram [Celexa] 20 mg PO QAM 01/06/19 01/06/19 Unknown flaxseed oil 1,000 mg PO HS 01/06/19 01/06/19 Unknown ibuprofen 1 - 2 tab PO UD PRN 01/06/19 01/06/19 Unknown Past Medical History Medical History Anxiety Bladder prolapse NO DEVICE USED Degenerative disc disease LUMBAR AREA Hyperlipidemia Hypertension Osteoarthritis Temporomandibular joint disorder Never stuck open Past Family History Family History Mother Family history of diabetes mellitus Grandmother (Maternal) Family history of diabetes mellitus Brother Family hx of colon cancer Past Surgical History Surgical History History of cataract surgery RT/LEFT History of cholecystectomy History of colonoscopy History of dilatation and curettage History of hysterectomy History of repair of rotator cuff RT History of tonsillectomy History of tooth extraction History of total knee replacement RT Past Anesthesia History No Hx of Anesthesia Complications and No Family Hx of Anesthesia Complications History of PONV No Motion Sickness Screening History of Motion Sickness: No Social History Smoking Status: Never smoker Do You Dip or Chew Tobacco: No Hx Alcohol Use: Yes Alcohol type: beer alcohol intake frequency: a few times a month Hx Substance Use: No substance use type: does not use Exercise / Class Metabolic Activity II 4-5 Yardwork/Stairs/Walk up hill (Limited currently due to knee pain. Able to climb stairs one at a time due to knee pain. Denies CP or SOB.) Review of Systems Patient denies chest pain, shortness of breath, dyspnea on exertion, reflux, cough, wheezing, palpitations. +Joint pain (Knees, Hips, Hands, Fingers, Wrists, etc) Physical Exam Vital Signs BP: 142/69 P: 65 R: 16 T: 98.3 SPO2: 96% on RA Constitutional + obese ENMT Mouth: + dental restorations Thyromental Distance: > or= 3.5 Finger Breadths (3.5) Mallampati Class: II Neck normal visual inspection and trachea midline; neck extension not limited Respiratory normal respiratory effort Auscultation: lungs clear to auscultation bilaterally Cardiovascular Rate/Rhythm: regular rate and regular rhythm Heart Sounds: no murmur Vessels: no carotid bruit Neurologic moves all extremities Psychiatric Orientation: alert and oriented x 3 Testing Electrocardiogram Date: 01/10/19 Findings: + NSR @ (63) and + no change from (01/22/17) Chest X-Ray Date: 01/10/19 FINDINGS: Cardiac mediastinal and hilar silhouettes are within normal limits. Minimal subsegmental left basilar past's are noted. No pneumothorax, pleural effusion or overt pulmonary edema. Unchanged 7 mm dense nodule left upper lung suggestive of a calcified granuloma. Prior cholecystectomy. Degenerative changes of the shoulders and spine. IMPRESSION: Minimal subsegmental left basilar opacities suggest probable atelectasis. Laboratory Results 01/10/19 12:10 01/10/19 12:10 Blood Type A Positive 01/10/19 12:10 Antibody Screen NEGATIVE 01/10/19 12:10 PT 10.6 Seconds (9.0-12.0) 01/10/19 12:10 INR 1.0 (0.9-1.1) 01/10/19 12:10 APTT 24.9 Seconds (21.0-31.0) 01/10/19 12:10 Hemoglobin A1c 5.5 % (4.5-5.6) 01/10/19 12:10 Urine Color Yellow 01/10/19 12:10 Urine Appearance Clear (Clear) 01/10/19 12:10 Urine pH 5.0 (4.5-7.5) 01/10/19 12:10 Ur Specific [place] 1.015 (1.000-1.030) 01/10/19 12:10 Urine Protein Negative (Negative) 01/10/19 12:10 Urine Glucose (UA) Negative (Negative) 01/10/19 12:10 Urine Ketones Negative (Negative) 01/10/19 12:10 Urine Nitrite Positive (Negative) H 01/10/19 12:10 Ur Leukocyte Esterase 1+ (Negative) H 01/10/19 12:10 Urine WBC (Auto) 10-30 /hpf (0-5) H 01/10/19 12:10 Urine RBC (Auto) 0-4 /hpf (0-4) 01/10/19 12:10 U Hyaline Cast (Auto) 1-5 /lpf (0-5) 01/10/19 12:10 U Epithel Cells (Auto) 20-30 /lpf (0-5) H 01/10/19 12:10 Urine Bacteria (Auto) 4+ (Negative) H 01/10/19 12:10 01/10/19 12:10 Urine Culture - Final Urine,Clean Catch Escherichia coli Surgeon's office made aware of UTI.
--- NOTE | 2019-01-10 12:58 | XRay Report ---
XR chest Pre-admission PA/Lat HISTORY: 73 years-old Female pat preoperative exam. No acute chest complaints COMPARISON: Chest radiograph 11/09/2017 TECHNIQUE: PA and lateral views of the chest FINDINGS: Cardiac mediastinal and hilar silhouettes are within normal limits. Minimal subsegmental left basilar past's are noted. No pneumothorax, pleural effusion or overt pulmonary edema. Unchanged 7 mm dense n odule left upper lung suggestive of a calcified granuloma. Prior cholecystectomy. Degenerative change s of the shoulders and spine. IMPRESSION: Minimal subsegmental left basilar opacities suggest probable atelectasis. The above report was generated using voice recognition software. It may contain grammatical, syntax o r spelling errors. Electronically signed by: Juanpablo Person M.D. 01/10/2019 12:57 PM
[2019-01-10 13:18] LABS: Eosinophils # (auto) 0.11 K/uL (0-0.5); Eosinophils % (auto) 2.1 %; Hemoglobin 13.4 g/dL (12.0-16.0); Immature Granulocytes # (auto) 0.01 K/uL (0.00-0.02); Immature Granulocytes % (auto) 0.2 %; Lymphocytes % (auto) 27.2 %; Mean Corpuscular Hgb Conc 33.5 g/dL (32-36); Mean Platelet Volume 11.1 fL (7.4-10.4); Monocytes # (auto) 0.49 K/uL (0.11-0.59); Monocytes % (auto) 9.5 %; Neutrophils # (auto) 3.14 K/uL (1.4-6.5); Platelet Count 250 K/uL (130-400); RDW Coefficient of Variation 13.3 % (11.5-14.5); RDW Standard Deviation 44.7 fL (36.4-46.3); Red Blood Count 4.35 M/uL (4.2-5.4); White Blood Count 5.15 K/uL (4.8-10.8)
[2019-01-10 13:23] LABS: Appearance Urine Clear (Clear); Bacteria Urine Automated 4+ (Negative); Bilirubin Urine Negative (Negative); Blood Urine 1+ (Negative); Color Urine Yellow; Epithelial Cell Urine Auto 20-30 /lpf (0-5); Glucose Urine UA Negative (Negative); Ketones Urine Negative (Negative); Leukocyte Esterase Urine 1+ (Negative); Nitrite Urine Positive (Negative); Protein Urine Negative (Negative); RBC Urine Automated 0-4 /hpf (0-4); Specific Gravity Urine 1.015 (1.000-1.030); Urobilinogen Urine Negative (Negative)
[2019-01-10 13:33] LABS: Albumin Level 3.3 gm/dl (3.4-5.0); Calcium 9.1 mg/dl (8.5-10.1); Creatinine Clr Calc Pharmacy 103.9 ml/min; Potassium 4.2 mmol/L (3.5-5.1)
[2019-01-10 13:37] LABS: Partial Thromboplastin Ratio 0.9; Partial Thromboplastin Time 24.9 Seconds (21.0-31.0); Prothrombin Time 10.6 Seconds (9.0-12.0)
[2019-01-10 13:46] LABS: Estimated Average Glucose 111 mg/dl; Hemoglobin A1C 5.5 % (4.5-5.6)
--- NOTE | 2019-02-11 19:11 | History and Physical Report ---
DATE OF ADMISSION: 02/12/2019 CHIEF COMPLAINT: Chronic left knee pain. HISTORY OF PRESENT ILLNESS: This is a 73-year-old female patient of Dr. Biggs'skyler complaining of chronic left knee pain, longstanding, now progressively getting worse. The patient has failed conservative treatment including intraarticular injections, the use of Coolief treatment, anti-inflammatories, home exercise program and the use of a cane and a sleeve. The patient has been diagnosed with end-stage osteoarthritis per clinical and radiographic exams. The patient has increased pain with weightbearing activities and her pain does interfere with her activities of daily living. At this point in time, the patient wished to proceed with a left total knee arthroplasty. PAST MEDICAL HISTORY: Hypertension, hypercholesterolemia, osteoarthritis, spinal stenosis, sciatica and obesity. SOCIAL HISTORY: Nonsmoker, nondrinker. PAST SURGICAL HISTORY: Right knee, right shoulder, hysterectomy, tonsillectomy. FAMILY HISTORY: Noncontributory. REVIEW OF SYSTEMS: Chronic left knee pain, otherwise denies any shortness of breath, chest pain, nausea, vomiting or any other joint complaints. MEDICATIONS: Celexa 10 mg daily, Tylenol as needed, flaxseed oil daily, vitamin C 500 mg daily, Coreg 3.125 mg daily. ALLERGIES: INCLUDE KEFLEX AND PENICILLIN. PHYSICAL EXAMINATION: GENERAL: Well-developed, well-nourished 73-year-old female in no acute distress. She is alert and oriented x3 and pleasant. HEENT: Normocephalic, atraumatic. Extraocular motions are intact. Pupils are equal, reactive to light. HEART: Regular rate and rhythm, no murmurs. LUNGS: Clear. ABDOMEN: Soft, nontender, bowel sounds present. EXTREMITIES: Left knee reveals a valgus deformity with limited range of motion of negative 10-100 degrees. She has lateral joint line tenderness with crepitation with passive range of motion. She has 5/5 strength. NEUROLOGIC: Neurovascularly, she is intact in her left lower extremity. DIAGNOSES: Left knee end-stage osteoarthritis, hypertension, hypercholesterolemia, osteoarthritis, spinal stenosis, sciatica, obesity. PLAN: The patient was advised of her diagnosis. Indications, risks, benefits, and postop course have all been reviewed. The patient wished to proceed with a left total knee arthroplasty. Necessary consent forms, preoperative testing and clearances will be obtained.
[2019-02-12] MEDS ORDERED: LR 500ML BOLUS, THEN 15ML/HR IV SCH (06:00)
[2019-02-12] MEDS ORDERED: VANCOMYCIN HCL 1,750 MG in SODIUM CHLORIDE 0.9% 500 ML IV SCH ×2 (06:00→18:00)
[2019-02-12] MEDS ORDERED: GABAPENTIN 300 MG PO SCH (06:00)
[2019-02-12] MEDS ORDERED: TRANEXAMIC ACID 1,000 MG **IV Pre-op IV SCH (06:00)
[2019-02-12] MEDS ORDERED: METOCLOPRAMIDE HCL 10 MG TABLET PO SCH (06:00)
[2019-02-12] MEDS ORDERED: dexAMETHasone 4 MG TAB PO SCH (06:00)
[2019-02-12] MEDS ORDERED: ROPIVACAINE 0.5% HCL/PF 150 MG, BUPIVACAINE 0.5% MPF 30 ML, EPINEPHrine 30MG/30ML (OR U... INFIL SCH (06:00)
[2019-02-12] MEDS ORDERED: ACETAMINOPHEN 500 MG TAB PO SCH (06:00)
[2019-02-12] MEDS ORDERED: CeleBREX 200 MG CAP PO SCH (06:00)
[2019-02-12] MEDS ORDERED: FAMOTIDINE 20 MG TAB PO SCH (06:00)
[2019-02-12] MEDS ORDERED: BUPIVACAINE 0.5 % 5 MG/1 ML PF 10ML VIAL ONE (06:24)
[2019-02-12] MEDS ORDERED: ROPIVACAINE 0.5% 5 MG/ML 30 ML VIAL ONE (06:24)
[2019-02-12] MEDS ORDERED: TRANEXAMIC ACID 1,000 MG **IV Intra-op IV SCH (06:30)
[2019-02-12] MEDS ORDERED: MIDAZOLAM HCL 1 MG/ML 2ML VIAL ONE (06:44)
[2019-02-12] MEDS ORDERED: PROPOFOL IV EMULSION 10 MG/ML 20 ML VIAL IV ONE ×2 (06:44→08:51)
[2019-02-12] MEDS ORDERED: fentaNYL citrate 100 MCG/2 ML VIAL ONE (06:45)
[2019-02-12] MEDS ORDERED: ATROPINE SULFATE 0.1 MG/ML 10ML SYR IV PRN (06:48)
[2019-02-12] MEDS ORDERED: ePHEDrine sulfate 50 MG/ML AMP IV PRN (06:48)
[2019-02-12] MEDS ORDERED: HYDROmorphone INJ 1 MG/ML SYRINGE IV PRN (06:48)
[2019-02-12] MEDS ORDERED: BACITRACIN INJ 50,000 UNIT VIAL ONE (06:49)
[2019-02-12] MEDS ORDERED: POVIDONE-IODINE OP SOLN 30 ML BTL ONE (06:49)
[2019-02-12] MEDS ORDERED: ORTHO JOINT ANESTHETIC ONE (06:49)
--- NOTE | 2019-02-12 06:49 | History & Physical Bridge Note ---
Date of Service February 12, 2019 History & Physical Bridge Note I have examined the patient, reviewed the History & Physical and in the interval since the performance of the History & Physical I have noted the following changes of clinical significance: no changes noted
--- NOTE | 2019-02-12 08:52 | Operative Report ---
Post Operative Report Pre & Post Diagnosis Operation Date: 02/12/19 07:00 Pre-Op Diagnosis: left knee end-stage osteoarthritis, obesity BMI 36.4 Post-Op Diagnosis: left knee end-stage osteoarthritis, obesity BMI 36.4 Procedure Operation Date: 02/12/19 07:00 Actual Procedures p Left Total Knee Arthroplasty(Left), application superficial wound VAC, increased difficulty BMI 36.4- Darrick Biggs MD Surgeon Darrick Biggs MD [employer] Attendant Andre ORTIZ Estimated Blood Loss 10 Findings Consistent with Post-Op Diagnosis Specimens Bone cuts Anesthesia Type Spinal MAC Complications none Disposition Accompanied Patient To Recovery: No Disposition: Recovery Room Indications 73-year-old female with chronic left knee pain. Radiographs demonstrate a valgus knee [id number] in the lateral compartment. Right knee has been replaced with a well aligned Stevens & Nephew knee replacement. Patient's had extensive conservative management including [place] radiofrequency nerve ablation in a clinical trial. Description of Procedure The patient was taken to the operating room and anesthetized under spinal MAC adductor nerve block. Patient was placed supine on the the operating table. A pneumatic tourniquet was placed about the left obese upper thigh. The knee exam demonstrated obese upper thigh and obese knee in general. Range of motion 15 degree flexion contracture and flexion to 120 degrees with tight lateral compartment and no pseudolaxity. The involved leg was elevated exsanguinated with Esmarch bandage and the pneumatic tourniquet was raised to 350 millimeters mercury. A longitudinal incision was made across the anterior knee. Skin flaps were elevated. An incision was made into the medial retinaculum and extended up into the mid third of the quadriceps tendon and extended down to the tibial tubercle. Intra-articular findings demonstrated grade 4 central patella DJD. Complex grade 3-4 lesion medial femoral condyle, grade 4 lateral aspect of the lateral femoral condyle and posterior lateral tibial plateau with eburnated bone. The knee was exposed by excising cruciate ligaments and menisci. The infrapatellar fat pad was resected. The fat pad over the anterior femur at the upper aspect of the articular surface was resected for placement of the component in that area. A subperiosteal peel lateral release was performed around the patella. To balance ligaments I had to release the lateral and posterior lateral capsule remove the bone spur along the posterior lateral tibia release the IT band subperiosteally off the tibia. The Stevens & Nephew journey 2.0 posterior stabilized total knee arthroplasty system was utilized for the procedure. The custom femoral cutting guide was pinned in position. The distal femoral cut was made. The size 6, 5 in 1 cutting block was placed. The anterior posterior and chamfer cuts were made. The knee was extended and a free hand cut technique was performed to the patella. The patella with was measured and the width was reproduced using a 35 patella component. 3 drill holes are made for the patella component pegs. The tibia was then subluxed. The custom tibial cutting block was pinned in position and the proximal tibial cut was made with the oscillating saw. The size 4 tibial trial was externally rotated in line with the tibial tubercle and pinned in position. The punch for the stem was used. The femoral trial was inserted and centered the notch cutting devices were used and the collet was placed. Tibial trials were used for the insert. The size 12 trial gave balanced ligaments through full range of motion. Patella tracking was assessed with range of motion. The patella tracked centrally. The trials were removed. The Orthomix anesthetic cocktail was injected per protocol. The cut bone surfaces and soft tissue were copiously irrigated with antibiotic solution with bacitracin. The final components were cemented with Simplex cement. The final components were 6 posterior stabilized femoral Stevens & Nephew journey 2.0 femoral component, 4 tibial baseplate, 12 mm posterior stabilized poly-insert, 35 mm symmetrical patella. While the cement cured the Betadine soak was used per protocol. When the cement cured the knee was copiously irrigated with pulsatile lavage antibiotic solution with bacitracin. 2 drains were brought out laterally connected to Hemovac. The quadriceps tendon and medial retinaculum were closed with interrupted [id number] #1 Vicryl sutures. The knee was taken through full range of motion and repair was secure. The subcutaneous tissues were closed with 2-0 Vicryl sutures. The skin was closed with elysia. A superficial wound VAC was applied. There is increased difficulty throughout the procedure due to obesity BMI 36.4 the tourniquet was let down and the patient had good capillary refill to the extremity. The patient tolerated the procedure well. My physician preschool assistant teacher Andre ORTIZ assisted in the procedure including prepping draping leg positioning soft tissue retraction instrument management and assisted in the closure ,dressings application and will participate in postoperative care the patient. I attest to the content of the Intraoperative Record and any orders documented therein. Any exceptions are noted below.
--- NOTE | 2019-02-12 09:36 | XRay Report ---
XR knee LT 2V routine CLINICAL HISTORY: Surgical Post Op postoperative COMPARISON: None. DISCUSSION: Anatomic alignment post total left knee arthroplasty. Good contact between prosthetic and underlying bone. Expected postoperative soft tissue change. IMPRESSION: Anatomic alignment post total left knee arthroplasty. The above report was generated using voice recognition software. It may contain grammatical, syntax or spelling errors. Electronically signed by: Andre Pollack M.D. 02/12/2019 9:35 AM
[2019-02-12] MEDS ORDERED: HYDROmorphone INJ 0.5 MG/0.5 ML SYR IV PRN (10:22)
[2019-02-12] MEDS ORDERED: VANCOMYCIN CONSULT ACTIVE PRN (10:22)
[2019-02-12] MEDS ORDERED: NALOXONE HCL 0.4 MG/1 ML VIAL/CARP IV PRN (10:22)
[2019-02-12] MEDS ORDERED: BISACODYL 10 MG SUPP PR PRN (10:22)
[2019-02-12] MEDS ORDERED: MAGNESIUM HYDROXIDE SUSP 30 ML UDC PO PRN (10:22)
[2019-02-12] MEDS ORDERED: ONDANSETRON INJ 2 MG/ML 2 ML VIAL IV PRN (10:22)
--- NOTE | 2019-02-12 10:40 | Anesthesiology Progress Note ---
Date of Service February 12, 2019 Anesthesia Post Procedure Vital Signs Vital Signs: Temp Pulse Pulse Resp BP Pulse Ox 02/12/19 10:22 36.4 C L 54 L 20 146/75 H 97 02/12/19 10:05 36.4 C L 57 L 18 146/76 H 90 02/12/19 09:50 36.3 C L 49 L 15 126/71 94 02/12/19 09:40 49 L 14 108/63 94 02/12/19 09:30 52 L 14 121/65 99 02/12/19 09:20 52 L 14 116/61 99 02/12/19 09:13 36.0 C L 51 L 17 110/58 L 96 02/12/19 05:46 36.7 C 65 20 146/78 H 95 Transfer of Care Handoff Completed per policy Notes Mental Status: alert / awake / arousable Patient Amnestic to Procedure: Yes Nausea / Vomiting: adequately controlled Pain: adequately controlled Airway Patency, RR, SpO2: stable & adequate BP & HR: stable & adequate Hydration State: stable & adequate Anesthetic Complications: no major complications apparent and Pt Satisfied with anesthetic care
--- NOTE | 2019-02-12 10:45 | Consultation ---
Date of Consultation February 12, 2019 Assessment & Plan (1) Right knee DJD: - Pain management, bowel regimen and DVT ppx with asa 81 mg BID per primary - PT/OT on board - Outpatient therapy planned after discharge, CM to assist (2) Osteoarthritis: - s/p R knee as above. (3) HTN (hypertension): - Continue carvedilol 6.25 mg BID, can use hydralazine IV if needed to more BP control. Pulse in the 50s so would avoid further beta blockade. Pt reports BP typically - Manage pain control (4) Hyperlipidemia: (5) Obesity (BMI 30-39.9): - BMI of 36, diet and exercise to be encouraged upon discharge. Thank you for involving medicine in the care of Mrs. Yusuf, please do not hesitate to call with questions or concerns. At this time medicine will sign off. Supervising Physician Co-Signing Physician Notes PA Supervision Note: I personally saw and examined the patient. I verified all dejesus points and agree with DIANA Cervantes with the following exceptions and/or additions: Pt doing very well post-op. Denies CP or SOB, no abd pain, knee pain is controlled. Is moving her legs now. María po. Is hopeful for dc to home tomorrow. History reviewed ROS negative otherwise Vitals reviewed NAD, obese, AAOx3 RRR no gr CTAB no wcr Abd +BS soft NT ND Ext left knee with dressing in place and ice, moves feet bilat Right leg no edema or calf tenderness 73 yo female with a h/o Obesity, HTN, here with left TKA, doing very well BPs controlled, continue COreg ASA 81 bid for proph Medicine Service will sign off as pt very medically stable History of Present Illness Requesting Physician: Dr. Biggs Reason for Consultation: Medical management Attending Physician: Darrick Biggs MD History of Present Illness This is a 73 yo F with PMHx of HTN, HLD, osteoarthritis, obesity with BMI of 36, anxiety, bladder prolapse and hx of TMJ, who underwent elective R total knee by Dr. Biggs on 02/12/19. The patient is doing well. She still has some numbness down into her feet but sensation is returning, and she is able to wiggle her toes without difficulty. She has a cup of coffee and is enjoying it, lunch has been ordered. No flatus or BM yet. She has plans for outpatient therapy after discharge. Her is at bedside. Allergies Allergy/AdvReac Type Severity Reaction Status Date / Time Penicillins Allergy Intermediate HIVES Verified 02/12/19 05:42 Home Medications Home Medications Medication Instructions Recorded Confirmed Type aspirin 81 mg PO QAM 01/06/19 02/12/19 History carvedilol [Coreg] 6.25 mg PO BID 01/06/19 02/12/19 History cholecalciferol (vitamin D3) 3 tab PO QAM 01/06/19 02/12/19 History [Vitamin D3] citalopram [Celexa] 20 mg PO QAM 01/06/19 02/12/19 History flaxseed oil 1,000 mg PO HS 01/06/19 02/12/19 History ibuprofen 1 - 2 tab PO UD PRN 01/06/19 02/12/19 History Patient History Medical History Anxiety Bladder prolapse NO DEVICE USED Degenerative disc disease LUMBAR AREA Hyperlipidemia Hypertension Osteoarthritis Temporomandibular joint disorder Never stuck open Surgical History History of cataract surgery RT/LEFT History of cholecystectomy History of colonoscopy History of dilatation and curettage History of hysterectomy History of repair of rotator cuff RT History of tonsillectomy History of tooth extraction History of total knee replacement RT Social History Preferred Language: Indonesian Communication Ability: Effective Financial Sales Advisor Required: No Beliefs That Will Affect Care: None Current Living Situation: Spouse Other Information That Helps Us Care for You: No Feels Safe at Home: Yes Safety Concerns: Feels Safe At This Time Smoking Status: Never smoker Do You Dip or Chew Tobacco: No Second Hand Exposure: No Tobacco Cessation Education Requested by Patient: No Hx Alcohol Use: Yes Alcohol type: beer Hx Substance Use: No Review of Systems Review of Systems: Constitutional: No fever, sweats or chills Eyes: No diplopia, no worsening or blurred vision ENT: normal hearing, no trouble swallowing Respiratory: No cough, sputum, dyspnea at rest or on exertion Cardiovascular: No chest pain, tightness or palpitations Abdomen: No pain, nausea, vomiting, diarrhea or constipation Musculoskeletal: No joint pain, calf pain, swelling Neurologic: No weakness, numbness/tingling, or balance problems Psychiatric: No anxiety or depression Skin: No rash or itch Physical Exam Physical Exam: General: awake, alert, no apparent distress Head: Normocephalic, atraumatic ENT: PERRL, EOMI, no pharyngeal exudate, mucous membranes moist Chest: Clear to auscultation, on room air, no adventitious breath sounds Cardiac: Regular rate and rhythm, no murmur, no JVD, normal peripheral pulses, good capillary refill Abdominal: NABS x 4 quadrants, soft, nontender to palpation, no rebound, guarding or tenderness Extremities: R knee dressing c/d/i, +hemovac, icepack on, otherwise normal inspection, no peripheral edema or erythema, calfs nontender to palpation Psych: Normal mood and affect Neuro: AAO x 3, strength intact bilaterally and related 5/5, no motor deficits, speech is clear, no peripheral sensory deficits Results & Data Vital Signs (Past 12 Hours) Vital Signs Temp Pulse Pulse Resp BP Pulse Ox 02/12/19 10:22 36.4 C L 54 L 20 146/75 H 97 02/12/19 10:05 36.4 C L 57 L 18 146/76 H 90 02/12/19 09:50 36.3 C L 49 L 15 126/71 94 02/12/19 09:40 49 L 14 108/63 94 02/12/19 09:30 52 L 14 121/65 99 02/12/19 09:20 52 L 14 116/61 99 02/12/19 09:13 36.0 C L 51 L 17 110/58 L 96 02/12/19 05:46 36.7 C 65 20 146/78 H 95
[2019-02-12] MEDS: TRAMADOL HCL 50 MG TABLET PO PRN ×3 (12:42→20:41)
[2019-02-12] MEDS: ACETAMINOPHEN 500 MG TAB PO SCH ×2 (13:07→21:12)
[2019-02-12] MEDS: SODIUM CHLORIDE 0.9% 1000ML 1,000 ML IV SCH (15:48)
[2019-02-12] MEDS: CeleBREX 200 MG CAP PO SCH (20:40)
[2019-02-12] MEDS: CARVEDILOL 6.25 MG TAB PO SCH (20:41)
[2019-02-12] MEDS: ASPIRIN 81 MG ECTAB PO SCH (20:41)
[2019-02-12] MEDS: DOCUSATE SODIUM 100 MG CAP PO SCH (20:41)
[2019-02-12] MEDS ORDERED: NON-FORMULARY MEDICATION (Flaxseed Oil 1,000 MG) PO SCH (21:00)
[2019-02-13] MEDS: TRAMADOL HCL 50 MG TABLET PO PRN ×4 (01:02→22:24)
[2019-02-13] MEDS: ACETAMINOPHEN 500 MG TAB PO SCH ×3 (05:50→20:34)
[2019-02-13 06:13] LABS: Hematocrit (blood only) 32.8 % (37-47); Hemoglobin 11.4 g/dL (12.0-16.0); Mean Corpuscular Hgb Conc 34.8 g/dL (32-36); Mean Corpuscular Volume 89.9 fL (80-100); Mean Platelet Volume 10.4 fL (7.4-10.4); Platelet Count 195 K/uL (130-400); RDW Coefficient of Variation 13.3 % (11.5-14.5); RDW Standard Deviation 43.8 fL (36.4-46.3); Red Blood Count 3.65 M/uL (4.2-5.4); White Blood Count 11.46 K/uL (4.8-10.8)
[2019-02-13] MEDS: SODIUM CHLORIDE 0.9% 1000ML 1,000 ML IV SCH (06:45)
[2019-02-13 06:54] LABS: BUN Creatinine Ratio 24.2 (10-20); Calcium 8.1 mg/dl (8.5-10.1); Creatinine Clr Calc Pharmacy 122.7 ml/min; Est GFR (African American) 108.1; Est GFR (Non-African American) 93.3; Potassium 4.2 mmol/L (3.5-5.1)
--- NOTE | 2019-02-13 07:50 | Orthopedic Progress Note ---
Date of Service February 13, 2019 Assessment & Plan (1) Right knee DJD: (2) Left knee DJD: POD #1, Left TKA PT/ OT DVT proph- ASA D/C planning- Home w OPPT Appreciate medicine input. Subjective POD #1, Doing well, denies SOB, CP, N/V. Pain controlled well. Drain output 640cc's. Physical Exam Physical Exam: Left knee dressings c/d/i. Drain in tact. No drainage. Toes and ankle mobile. No calf tenderness. A&Ox3. Results & Data Vital Signs (Past 12 Hours) Vital Signs Temp Pulse Resp BP Pulse Ox 02/13/19 03:32 36.5 C 57 L 17 119/74 95 02/12/19 23:47 36.7 C 59 L 17 111/58 L 93
--- NOTE | 2019-02-13 08:01 | Anesthesiology Progress Note ---
Date of Service February 13, 2019 Anesthesia Post Procedure Vital Signs Vital Signs: Temp Pulse Pulse Resp BP Pulse Ox 02/13/19 03:32 36.5 C 57 L 17 119/74 95 02/12/19 23:47 36.7 C 59 L 17 111/58 L 93 02/12/19 19:46 36.7 C 69 20 107/69 93 02/12/19 15:19 36.4 C L 53 L 17 100/64 94 02/12/19 12:59 59 L 14 126/78 91 02/12/19 11:58 36.5 C 52 L 18 135/72 97 02/12/19 10:52 36.5 C 54 L 20 139/72 98 02/12/19 10:22 36.4 C L 54 L 20 146/75 H 97 02/12/19 10:05 36.4 C L 57 L 18 146/76 H 90 02/12/19 09:50 36.3 C L 49 L 15 126/71 94 02/12/19 09:40 49 L 14 108/63 94 02/12/19 09:30 52 L 14 121/65 99 02/12/19 09:20 52 L 14 116/61 99 02/12/19 09:13 36.0 C L 51 L 17 110/58 L 96 Pain Intensity Left Knee: Pain Intensity: 9 Notes Mental Status: alert / awake / arousable and participated in evaluation Patient Amnestic to Procedure: Yes Nausea / Vomiting: adequately controlled Pain: adequately controlled Airway Patency, RR, SpO2: stable & adequate BP & HR: stable & adequate Hydration State: stable & adequate Neuraxial Anesthesia: was administered and sensory block resolved Anesthetic Complications: no major complications apparent and Pt Satisfied with anesthetic care
[2019-02-13] MEDS: ASPIRIN 81 MG ECTAB PO SCH ×2 (09:15→20:35)
[2019-02-13] MEDS: CHOLECALCIFEROL 1,000 UNITS TAB PO SCH (09:16)
[2019-02-13] MEDS: CeleBREX 200 MG CAP PO SCH ×2 (09:16→20:34)
[2019-02-13] MEDS: CARVEDILOL 6.25 MG TAB PO SCH ×2 (09:16→20:34)
[2019-02-13] MEDS: DOCUSATE SODIUM 100 MG CAP PO SCH ×2 (09:16→20:34)
[2019-02-13] MEDS: MULTIVITAMIN TAB PO SCH (09:16)
[2019-02-13] MEDS: CITALOPRAM 20 MG TAB PO SCH (09:16)
[2019-02-13] MEDS: OXYCODONE HCL IR 5 MG TAB (IMMEDIATE RELEASE) PO PRN (20:31)
[2019-02-14] MEDS: OXYCODONE HCL IR 5 MG TAB (IMMEDIATE RELEASE) PO PRN ×3 (02:21→14:23)
[2019-02-14] MEDS: ACETAMINOPHEN 500 MG TAB PO SCH ×2 (06:09→14:20)
[2019-02-14 06:12] LABS: Hematocrit (blood only) 36.1 % (37-47); Mean Corpuscular Hgb Conc 33.2 g/dL (32-36); Mean Corpuscular Volume 92.3 fL (80-100); Mean Platelet Volume 10.8 fL (7.4-10.4); Platelet Count 211 K/uL (130-400); RDW Coefficient of Variation 13.8 % (11.5-14.5); RDW Standard Deviation 46.1 fL (36.4-46.3); Red Blood Count 3.91 M/uL (4.2-5.4); White Blood Count 6.89 K/uL (4.8-10.8)
[2019-02-14 06:41] LABS: BUN Creatinine Ratio 20.8 (10-20); Calcium 8.6 mg/dl (8.5-10.1); Creatinine Clr Calc Pharmacy 86.3 ml/min; Est GFR (African American) 84.7; Est GFR (Non-African American) 73.1; Potassium 4.2 mmol/L (3.5-5.1)
--- NOTE | 2019-02-14 07:35 | Orthopedic Progress Note ---
Date of Service February 14, 2019 Assessment & Plan (1) Right knee DJD: (2) Left knee DJD: POD #2, Left TKA Calf pain - Will get US to r/o DVT. If negative, plan for dc to home. PT/ OT DVT proph- ASA D/C planning- Home w OPPT Appreciate medicine input. Subjective POD 2 s/p Left TKA States she had let her pain go too long last night before asking for pain meds. Pain control better now but c/o left calf pain. No other complaints. Hoping to go home today. Physical Exam Physical Exam: Prevena C/D/I. Left calf soft, tender in the proximal calf. Reji's exam with increased pain in the calf. No overt edema in the ankle. Toes mobile. NV intact. Results & Data Vital Signs (Past 12 Hours) Vital Signs Temp Pulse Resp BP BP Pulse Ox 02/14/19 07:06 36.7 C 60 20 101/66 94 02/13/19 23:21 36.8 C 61 17 123/71 91 02/13/19 20:33 60 145/81 H
--- NOTE | 2019-02-14 08:57 | Ultrasound Report ---
ULTRASOUND LEFT LOWER EXTREMITY VENOUS CLINICAL HISTORY: Left leg pain. Recent surgery. COMPARISON STUDY: No priors. TECHNIQUE: Real-time, grayscale, and color Doppler sonography of the deep veins of the left lower ext remity was performed from the inguinal crease to the calf. Compression and augmentation were utilized . FINDINGS: There is no sonographic evidence of deep venous thrombosis identified in the left lower ext remity. The common femoral, superficial femoral, and popliteal veins are patent and normally compress ible. The greater saphenous vein and the profunda femoris vein at the junction with the common femora l vein are clear. The visualized calf veins are patent. IMPRESSION: There is no sonographic evidence of deep venous thrombosis identified in the left lower e xtremity. Electronically signed by: Jovany Cruz M.D. 02/14/2019 8:56 AM
[2019-02-14] MEDS: MULTIVITAMIN TAB PO SCH (09:16)
[2019-02-14] MEDS: CeleBREX 200 MG CAP PO SCH (09:16)
[2019-02-14] MEDS: DOCUSATE SODIUM 100 MG CAP PO SCH (09:16)
[2019-02-14] MEDS: CHOLECALCIFEROL 1,000 UNITS TAB PO SCH (09:17)
[2019-02-14] MEDS: CITALOPRAM 20 MG TAB PO SCH (09:17)
[2019-02-14] MEDS: CARVEDILOL 6.25 MG TAB PO SCH (09:17)
[2019-02-14] MEDS: ASPIRIN 81 MG ECTAB PO SCH (09:17)
--- NOTE | 2019-02-26 00:32 | Discharge Summary ---
This is a 73-year-old female patient of Dr. Biggs'skyler complaining of chronic left knee pain, longstanding, now progressively getting worse. The patient failed conservative treatment and elected to proceed with a left total knee arthroplasty. PAST MEDICAL HISTORY: Hypertension, hypercholesterolemia, osteoarthritis, spinal stenosis, sciatica and obesity. POSTOPERATIVE COURSE: The patient underwent a left total knee arthroplasty on 02/12/2019. She was followed closely with medical consultation, DVT prophylaxis in the form of aspirin and physical therapy. On postoperative day 2, she did have an unusual painful left lower leg below the knee. Ultrasound was performed and it was negative for DVT likely just due to postoperative swelling. Otherwise, an uneventful postoperative course. PHYSICAL EXAMINATION: On discharge, left knee Prevena wound VAC, it was clean, dry and intact. There was no redness or drainage. She still had some swelling and tenderness in her calf, but again ultrasound was negative for DVT. Her toes and ankles were mobile. Neurologically and neurovascularly she is intact in her left lower extremity. DIAGNOSES: Status post left total knee arthroplasty, hypertension, hypercholesterolemia, osteoarthritis, spinal stenosis, sciatica and obesity. PLAN: The patient was discharged home with outpatient physical therapy. She will continue her preadmission medications with the addition of pain medications and aspirin twice daily for DVT prophylaxis. The patient will follow up as scheduled as an outpatient.
== END 2019-02-14 15:21 | disposition home or self-care (01) | DRG 470 ==
LOC: ASU 04:48 → 3E 09:18